=== PATIENT | male | born 1940 | race Caucasian/White ===

== ENCOUNTER 2020-01-09 14:34 | Inpatient (IN) | payer MEDICARE, BC ==
[~2020-01-09] VITALS: Ht 175.3 cm; Wt 62.2 kg
[2020-01-09] MEDS ORDERED: DILTIAZEM HCL 120MG CAPSULE CD 24HR PO ONE (15:15)
[2020-01-09] MEDS ORDERED: DILTIAZEM HCL 5MG/ML 5ML VIAL IV ONE (15:15)
[2020-01-09] MEDS ORDERED: DILTIAZEM HCL 60MG TABLET PO ONE (15:30)
[2020-01-09 15:47] LABS: BASOPHILS % 0.8 % (0.0-2.0); EOSINOPHILS % 2.7 % (0.0-5.0); HEMOGLOBIN. 16.5 g/dL (14.0-18.0); LYMPHOCYTES % 18.6 % (20.0-50.0); MEAN CORPUSCULAR HEMOGLOBIN 32.6 pg (28.0-32.0); MEAN CORPUSCULAR VOLUME 94.8 fL (80.0-94.0); MEAN PLATELET VOLUME 8.5 fl (7.4-10.4); MONOCYTES % 7.4 % (2.0-8.0); NEUTROPHILS % 70.5 % (40.0-76.0); PLATELET 213 x1000/uL (130-400); RED BLOOD CELL COUNT 5.06 mill/uL (4.7-6.1); RED CELL DISTRIBUTION WIDTH 13.3 % (11.6-14.6)
[2020-01-09 15:49] LABS: CHLORIDE 106 mEq/L (98-107)
[2020-01-09 16:35] LABS: INR 1.4; PROTHROMBIN TIME 14.9 sec (9.6-11.0)
[2020-01-09] MEDS ORDERED: MAGNESIUM/ALUMINUM HYDROXIDE/SIMETHICONE 30ML UDC PO PRN (18:00)
[2020-01-09] MEDS ORDERED: MORPHINE SULFATE 2 MG/ML CPJ (NOT FOR IM USE) IV PRN (18:00)
[2020-01-09] MEDS ORDERED: ONDANSETRON HCL 4MG/2ML INJ IV PRN (18:00)
[2020-01-09] MEDS ORDERED: GUAIFENESIN 200MG/10ML SUGAR FREE UDC PO PRN (18:00)
[2020-01-09] MEDS ORDERED: DOCUSATE SODIUM 100MG CAPSULE PO PRN (18:00)
[2020-01-09] MEDS ORDERED: ACETAMINOPHEN 325MG TABLET PO PRN (18:00)
[2020-01-09] MEDS: RIVAROXABAN 15 MG TABLET PO SCH (18:49)
[2020-01-09 23:50] LABS: CLARITY URINE CLEAR (CLEAR); COLOR URINE YELLOW (YELLOW); KETONES URINE NEGATIVE (NEGATIVE); LEUKOCYTE ESTERASE URINE NEGATIVE (NEGATIVE); NITRITE URINE NEGATIVE (NEGATIVE); OCCULT BLOOD URINE NEGATIVE (NEGATIVE); PROTEIN URINE NEGATIVE (NEGATIVE); UROBILINOGEN URINE 0.2 E.U./dL (0.2-1.0)
[2020-01-09] MEDS: SOTALOL HCL 80MG TABLET PO SCH (23:55)
[2020-01-09] MEDS: ATORVASTATIN CALCIUM 40MG TABLET PO SCH (23:55)
[2020-01-09] MEDS: AMLODIPINE 5MG TABLET PO SCH (23:56)
[2020-01-10] MEDS: AMLODIPINE 5MG TABLET PO SCH ×2 (10:32→21:00)
[2020-01-10] MEDS: SOTALOL HCL 80MG TABLET PO SCH (10:32)
[2020-01-10 11:19] VITALS: BP 128/77
[2020-01-10 12:09] VITALS: BP 110/77
[2020-01-10] MEDS: DILTIAZEM HCL 30MG TABLET PO SCH ×2 (15:02→21:57)
[2020-01-10 15:56] LABS: BASOPHILS % 0.8 % (0.0-2.0); EOSINOPHILS % 0.9 % (0.0-5.0); HEMATOCRIT. 44.9 % (42.0-52.0); HEMOGLOBIN. 15.3 g/dL (14.0-18.0); LYMPHOCYTES % 15.1 % (20.0-50.0); MEAN CORPUSCULAR HEMOGLOBIN 32.4 pg (28.0-32.0); MEAN PLATELET VOLUME 8.9 fl (7.4-10.4); MONOCYTES % 6.7 % (2.0-8.0); NEUTROPHILS % 76.5 % (40.0-76.0); PLATELET 193 x1000/uL (130-400); RED BLOOD CELL COUNT 4.73 mill/uL (4.7-6.1); RED CELL DISTRIBUTION WIDTH 13.7 % (11.6-14.6)
[2020-01-10 15:58] LABS: CHLORIDE 107 mEq/L (98-107)
[2020-01-10 16:05] LABS: LDL CHOLESTEROL 74 mg/dL (5-100)
[2020-01-10 16:06] LABS: HDL CHOLESTEROL 47 mg/dL (40-59)
[2020-01-10 16:07] LABS: T4 FREE 1.09 ng/dL (0.76-1.46)
[2020-01-10] MEDS: RIVAROXABAN 15 MG TABLET PO SCH (17:00)
[2020-01-10 18:34] VITALS: BP 103/51
[2020-01-10 18:38] LABS: VITAMIN B12 SERUM > 2000.0 pg/mL (211-911)
[2020-01-10 20:00] VITALS: BP 114/60
[2020-01-10] MEDS: ATORVASTATIN CALCIUM 40MG TABLET PO SCH (21:57)
[2020-01-10] MEDS: SOTALOL HCL 120MG TABLET PO SCH (21:58)
[2020-01-11] VITALS: BP 101/66
[2020-01-11 04:00] VITALS: BP 126/55
[2020-01-11] MEDS: DILTIAZEM HCL 30MG TABLET PO SCH ×4 (06:00→23:00)
[2020-01-11 08:00] VITALS: BP 131/79
[2020-01-11] MEDS: SOTALOL HCL 120MG TABLET PO SCH ×2 (09:00→21:27)
[2020-01-11] MEDS: AMLODIPINE 5MG TABLET PO SCH ×2 (09:14→21:28)
[2020-01-11 12:00] VITALS: BP 148/66
[2020-01-11 16:00] VITALS: BP 118/58
[2020-01-11] MEDS: RIVAROXABAN 15 MG TABLET PO SCH (17:15)
[2020-01-11 20:00] VITALS: BP 126/58
[2020-01-11] MEDS: ATORVASTATIN CALCIUM 40MG TABLET PO SCH (21:28)
[2020-01-12 00:33] VITALS: BP 122/78
[2020-01-12 04:45] VITALS: BP 116/56
[2020-01-12] MEDS: DILTIAZEM HCL 30MG TABLET PO SCH ×2 (06:54→14:23)
[2020-01-12 08:27] VITALS: BP 114/52
[2020-01-12] MEDS: AMLODIPINE 5MG TABLET PO SCH (09:06)
[2020-01-12] MEDS: SOTALOL HCL 120MG TABLET PO SCH (09:06)
[2020-01-12 10:47] VITALS: BP 114/52
[2020-01-12 12:00] VITALS: BP 117/70
[2020-01-12 16:00] VITALS: BP 122/63
[2020-01-12] MEDS: RIVAROXABAN 15 MG TABLET PO SCH (17:11)
== END 2020-01-12 18:49 | disposition home or self-care (01) | DRG 310 ==
LOC: ER 14:34 → MICUSO 16:54 → EDBEDREQ 17:09 → 7WST 01-10 07:23 → 6WST 01-11 22:49
PROVIDERS: ADMIT Hospitalist; ATTEND Hospitalist
DX: I48.20 Chronic atrial fibrillation, unspecified (principal); I10 Essential (primary) hypertension; E78.5 Hyperlipidemia, unspecified; I27.20 Pulmonary hypertension, unspecified; F03.90 Unspecified dementia, unspecified severity, without behavioral disturbance, psychotic disturbance, mood disturbance, and anxiety; Z20.828 Contact with and (suspected) exposure to other viral communicable diseases; Z79.01 Long term (current) use of anticoagulants; Z79.899 Other long term (current) drug therapy; Z86.73 Personal history of transient ischemic attack (TIA), and cerebral infarction without residual deficits
CPT/HCPCS: 36415; 71045; 80048; 80053; 80061; 81003; 82607; 83735; 83880; 84439; 84443; 84484; 85025; 87635; 93005; 93970; 99285; J3490